=== PATIENT | male | born 1980 | race Hispanic/Latino ===

== ENCOUNTER 2018-07-22 16:18 | Emergency (ER) | payer SELFPAY ==
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
[2018-07-22 17:36] VITALS: TEMP 98.1; O2SAT 99
[2018-07-22 18:35] VITALS: BP 134/78; PULSE 74; RESP 18
--- NOTE | 2018-07-22 23:48 | CARD ---
APPROVED REPORT Date of service: 07/22/2018 EKG Measurement Heart [id number] <Conclusion> Normal sinus rhythm Normal ECG
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
== END 2018-07-22 18:35 | disposition home or self-care (01) ==
LOC: ED 16:18
DX: M54.2 Cervicalgia (principal); M54.9 Dorsalgia, unspecified; R07.89 Other chest pain
CPT/HCPCS: 71046; 93005; 96372; 99284; J1885